=== PATIENT | male | born 1965 | race Caucasian/White ===

== ENCOUNTER 2016-09-16 10:40 | Emergency (ER) | payer MEDICAID ==
[~2016-09-16] VITALS: Ht 177.8 cm; Wt 82.0 kg
[~2016-09-16 10:40] MED LIST: CEPH-368 PO; GABA800T2 PO; METH5TAB6 PO; SERT100T PO
[2016-09-16] MEDS ORDERED: LIDOCAINE 1%, 20ML ONE (11:08)
[2016-09-16] MEDS ORDERED: LIDOCAINE 1%, 20ML SQ ONE (11:30)
[2016-09-16 11:44] VITALS: BP 122/82
== END 2016-09-16 11:46 | disposition home or self-care (01) ==
LOC: ED 11:06
DX: L03.115 Cellulitis of right lower limb (principal); E03.9 Hypothyroidism, unspecified
CPT/HCPCS: 99281

== ENCOUNTER 2020-09-01 20:20 | Emergency (ER) | payer MEDICAID ==
[~2020-09-01] VITALS: Ht 177.8 cm; Wt 83.7 kg
[~2020-09-01 20:20] MED LIST changes: -GABA800T2 PO; +GABA800T5 PO
[2020-09-01 20:24] VITALS: BP 130/80
[2020-09-01] MEDS ORDERED: CEFTRIAXONE 1,000 MG ONE (21:25)
[2020-09-01] MEDS ORDERED: CEFTRIAXONE 1,000 MG IM ONE (21:30)
== END 2020-09-01 21:33 | disposition home or self-care (01) ==
LOC: ED 21:00
DX: A54.9 Gonococcal infection, unspecified (principal); F17.210 Nicotine dependence, cigarettes, uncomplicated; G89.29 Other chronic pain; E03.9 Hypothyroidism, unspecified
CPT/HCPCS: 87491; 87591; 96372; 99283; 99406; J0696

== ENCOUNTER 2020-11-08 05:53 | Emergency (ER) | payer MEDICAID ==
[~2020-11-08] VITALS: Ht 177.8 cm; Wt 82.6 kg
[2020-11-08] MEDS ORDERED: ALBUTEROL/IPRATROPIUM 2.5MG/0.5MG, 3 ML ONE (06:12)
[2020-11-08] MEDS ORDERED: ALBUTEROL/IPRATROPIUM 2.5MG/0.5MG, 3 ML NPPB ONE (06:30)
[2020-11-08 06:36] VITALS: BP 121/72
--- NOTE | 2020-11-08 06:53 | NUR ---
REVIEW OF CHART, ASSUME CARE OF PT AT THIS TIME.
--- NOTE | 2020-11-08 06:57 | NUR ---
REPORT TO CHERYL JONES
--- NOTE | 2020-11-08 07:16 | NUR ---
XR READ BACK, PT FOR RECHECK.
== END 2020-11-08 07:29 | disposition home or self-care (01) ==
LOC: ED 06:42
DX: J45.31 Mild persistent asthma with (acute) exacerbation (principal); F17.210 Nicotine dependence, cigarettes, uncomplicated; R06.02 Shortness of breath; E03.9 Hypothyroidism, unspecified
CPT/HCPCS: 71045; 94640; 99283; J7512